=== PATIENT | male | born 1965 | race African-American/Black ===

== ENCOUNTER 2020-10-04 15:05 | Emergency (ER) | payer BC ==
[~2020-10-04] VITALS: Ht 175.3 cm; Wt 86.4 kg
[2020-10-04 15:54] VITALS: TEMP 98.3
[2020-10-04 18:08] LABS: COLLECTION METHOD CLEAN CATCH
[2020-10-04 18:35] LABS: MUCOUS Present /lpf; PH 5 (5-8); SQUAMOUS EPITHELIAL None Seen /hpf; URINE APPEARANCE Clear; URINE BACTERIA None Seen /hpf; URINE BILIRUBIN Negative (NEGATIVE); URINE BLOOD Negative (NEGATIVE); URINE COLOR Yellow; URINE GLUCOSE Negative (NEGATIVE); URINE KETONE Negative (NEGATIVE); URINE LEUKOCYTE ESTERASE Negative (NEGATIVE); URINE NITRATE Negative (NEGATIVE); URINE PROTEIN(semi-quant) Negative (NEGATIVE); URINE RBC 0-2 /hpf
[2020-10-04 18:58] LABS: ALBUMIN 4.1 gm/dL (3.5-5.0); BILIRUBIN,TOTAL 0.4 mg/dL (0.0-1.0); CALCIUM 8.5 mg/dL (8.4-10.2); CREATININE, serum 1.11 (0.66-1.25); POTASSIUM 4.2 mmol/L (3.4-5.0); TOTAL PROTEIN 7.9 gm/dL (6.4-8.2)
[2020-10-04 19:40] VITALS: BP 124/70; PULSE 76
== END 2020-10-04 19:40 | disposition home or self-care (01) ==
LOC: COL.ER 15:05
PROVIDERS: Student in an Organized Health Care Education/Training Program
DX: T67.5XXA Heat exhaustion, unspecified, initial encounter (principal)
CPT/HCPCS: J2405; J7030